=== PATIENT | female | born 1980 | race Caucasian/White ===

== ENCOUNTER → 2022-03-07 | Outpatient (CLI) | payer BC | LOC: KOH-I 08:00 | DX: N20.0 Calculus of kidney (principal) | CPT/HCPCS: 74176 ==

== ENCOUNTER → 2022-05-11 | Day surgery (SDC) | payer BC ==
[~2022-05-11] MED LIST: ATORVASTATIN CA40 MG PO; BUSPIRONE HCL7.5 MG PO; DOXEPIN HCL75 MG PO; HYDROXYZINE HCL25 MG PO; PROPRANOLOL HCL60 M1 PO; VORT10TA PO
== END | disposition home or self-care (01) ==
LOC: OR 05:33
DX: M23.52 Chronic instability of knee, left knee (principal); M22.42 Chondromalacia patellae, left knee; S83.282A Other tear of lateral meniscus, current injury, left knee, initial encounter; E78.5 Hyperlipidemia, unspecified; G40.909 Epilepsy, unspecified, not intractable, without status epilepticus; F17.210 Nicotine dependence, cigarettes, uncomplicated; Z88.1 Allergy status to other antibiotic agents; X58.XXXA Exposure to other specified factors, initial encounter
CPT/HCPCS: 73560; 76000; C1713; C1762; J0171; J0690; J1100; J1170; J1885; J2001; J2250; J2405; J2704; J2795; J3010